=== PATIENT | male | born 1950 | race Caucasian/White ===

== ENCOUNTER 2016-06-08 05:44 | Emergency (ER) | payer MEDICAID ==
[~2016-06-08] VITALS: Ht 165.1 cm; Wt 63.0 kg
[2016-06-08 07:04] LABS: PROTHROMBIN TIME 10.1 sec
[2016-06-08 07:07] LABS: CHLORIDE 101 mEq/L (98-107); INDEX HEMOLYSI 1 (1-3); INDEX ICTERIC 1 (1-4); INDEX LIPEMIC 1 (1-3)
[2016-06-08 07:16] LABS: ALANINE AMINOTRANSFERASE 28 IU/L (13-61); ALBUMIN 2.5 g/dL (3.4-5.0); ANION GAP 17; CALCIUM 8.1 mg/dL (8.5-10.1); CARBON DIOXIDE 23 mEq/L (21-32); TROPONIN I < 0.02 ng/mL (0.00-0.04); UREA NITROGEN BLOOD 58 mg/dL (7-21); eGFR 20 mL/min (>60)
[2016-06-08 07:39] LABS: HEMATOCRIT. 28.5 % (42.0-52.0); HEMOGLOBIN. 10.2 g/dL (14.0-18.0); LYMPHOCYTES % 21.4 % (20.0-50.0); MEAN CORPUSCULAR HGB CONC 35.7 g/dL (31.0-37.0); MEAN CORPUSCULAR VOLUME 83.9 fL (80.0-94.0); MEAN PLATELET VOLUME 9.2 fl (7.4-10.4); MONOCYTES % 10.9 % (2.0-8.0); NEUTROPHILS % 62.7 % (40.0-76.0); PLATELET 248 x1000/uL (130-400); WHITE BLOOD COUNT 5.2 x1000/uL (4.5-11.0)
[2016-06-08 08:32] LABS: CLARITY URINE CLEAR (CLEAR); COLOR URINE YELLOW (YELLOW); GLUCOSE URINE 1+ (NEGATIVE); KETONES URINE NEGATIVE (NEGATIVE); LEUKOCYTE ESTERASE URINE NEGATIVE (NEGATIVE); NITRITE URINE NEGATIVE (NEGATIVE); OCCULT BLOOD URINE NEGATIVE (NEGATIVE); PH URINE 7.5 (4.5-8.0); PROTEIN URINE 2+ (NEGATIVE); SPECIFIC GRAVITY URINE 1.015 (1.005-1.030); UROBILINOGEN URINE 0.2 E.U./dL (0.2-1.0)
[2016-06-08 08:52] LABS: BACTERIA URINE TRACE; SQUAMOUS EPITHELIAL CELL URINE RARE /lpf (RARE/1+); WBC URINE 0-2 /hpf (0-2)
[2016-06-08 09:30] VITALS: BP 149/84
== END 2016-06-08 10:31 | disposition home or self-care (01) ==
LOC: ER 05:49
DX: T82.41XA Breakdown (mechanical) of vascular dialysis catheter, initial encounter (principal); I12.0 Hypertensive chronic kidney disease with stage 5 chronic kidney disease or end stage renal disease; N18.6 End stage renal disease; Z99.2 Dependence on renal dialysis; E11.65 Type 2 diabetes mellitus with hyperglycemia
CPT/HCPCS: 36415; 36561; 36581; 71010; 75827; 77001; 80053; 81001; 84484; 85025; 85610; 93005; 99285; C1725; C1750; C1769; J7050; Z7610; 36580

== ENCOUNTER 2017-02-24 05:38 | Day surgery (SDC) | payer MEDICARE, MEDICAID ==
[~2017-02-24] VITALS: Ht 165.1 cm; Wt 61.2 kg
[2017-02-24 06:42] LABS: BASOPHILS % 0.7 % (0.0-2.0); EOSINOPHILS % 3.9 % (0.0-5.0); HEMATOCRIT. 35.4 % (42.0-52.0); HEMOGLOBIN. 12.1 g/dL (14.0-18.0); LYMPHOCYTES % 16.6 % (20.0-50.0); MEAN CORPUSCULAR HEMOGLOBIN 30.3 pg (28.0-32.0); MEAN CORPUSCULAR VOLUME 88.7 fL (80.0-94.0); MEAN PLATELET VOLUME 8.7 fl (7.4-10.4); MONOCYTES % 11.3 % (2.0-8.0); NEUTROPHILS % 67.5 % (40.0-76.0); PLATELET 274 x1000/uL (130-400); RED BLOOD CELL COUNT 3.99 mill/uL (4.7-6.1); RED CELL DISTRIBUTION WIDTH 13.5 % (11.6-14.6)
[2017-02-24 06:50] LABS: PARTIAL THROMBOPLASTIN TIME 27.2 sec (23.4-31.0); PROTHROMBIN TIME 10.7 sec (9.4-11.6)
[2017-02-24] MEDS ORDERED: LIDOCAINE HCL 1% 20ML VIAL (Pyxis) INJ ONE (07:02)
[2017-02-24] MEDS ORDERED: LOSA50TA20 PO (07:03)
[2017-02-24] MEDS ORDERED: NIFE60TA77 PO (07:03)
[2017-02-24] MEDS ORDERED: METF500T4 PO (07:03)
[2017-02-24] MEDS ORDERED: HYDR-4134 PO (07:03)
[2017-02-24] MEDS ORDERED: NEPVIT PO (07:03)
[2017-02-24] MEDS ORDERED: THROMBIN (BOVINE) 5000 UNITS/VIAL TOP ONE (07:04)
[2017-02-24] MEDS ORDERED: PAPAVERINE HCL 30 MG/ML 2ML IV ONE (07:04)
[2017-02-24] MEDS ORDERED: GELATIN SPONGE,ABSORBABLE SZ 100 ONE (07:04)
[2017-02-24] MEDS ORDERED: BACITRACIN ZINC 15GM TUBE TOP ONE (07:04)
[2017-02-24] MEDS ORDERED: NORMAL SALINE 0.9% 10 ML SYR ONE (07:05)
[2017-02-24] MEDS ORDERED: BUPIVACAINE HCL/PF 0.5% (5MG/ML) 10ML ONE (07:05)
[2017-02-24] MEDS ORDERED: BACITRACIN 50,000 UNITS/VIAL ONE (07:05)
[2017-02-24] MEDS ORDERED: SODIUM CHLORIDE 0.9% 1,000 ML ONE (07:06)
[2017-02-24] MEDS ORDERED: HEPARIN SODIUM 1,000 UNIT/1ML VIAL IV ONE (07:14)
[2017-02-24] MEDS ORDERED: SODIUM CHLORIDE 0.9% 500 ML IV ONE (07:15)
[2017-02-24] MEDS ORDERED: NEOSTIGMINE METHYLSULFATE 1MG/ML 10 ML VIAL ONE (08:03)
[2017-02-24] MEDS ORDERED: CEFAZOLIN SODIUM 1000MG/VIAL ONE (08:03)
[2017-02-24] MEDS ORDERED: LIDOCAINE HCL/PF 1% 10 MG/ML 5ML VIAL ONE (08:04)
[2017-02-24] MEDS ORDERED: DEXAMETHASONE 4MG/ML 1ML VIAL ONE ×2 (08:05→08:07)
[2017-02-24] MEDS ORDERED: EPHEDRINE SULFATE 50MG/ML VIAL ONE (08:16)
[2017-02-24] MEDS ORDERED: HEPARIN 1000 UNITS/ML 10ML ONE (08:20)
[2017-02-24] MEDS ORDERED: FENTANYL CITRATE/PF 50MCG/ML 2ML VIAL IV PRN (08:30)
[2017-02-24] MEDS ORDERED: ONDANSETRON HCL 4MG/2ML VIAL IV PRN (08:30)
[2017-03-18] MEDS ORDERED: OMEP20CA10 PO (00:43)
[2017-03-18] MEDS ORDERED: CALC667T5 PO (00:43)
== END 2017-02-24 10:45 | disposition home or self-care (01) ==
LOC: OR 05:38
PROVIDERS: ATTEND Surgery Vascular Surgery
DX: I12.0 Hypertensive chronic kidney disease with stage 5 chronic kidney disease or end stage renal disease (principal); E11.22 Type 2 diabetes mellitus with diabetic chronic kidney disease; N18.6 End stage renal disease; Z86.2 Personal history of diseases of the blood and blood-forming organs and certain disorders involving the immune mechanism; K21.9 Gastro-esophageal reflux disease without esophagitis
CPT/HCPCS: 36415; 36821; 80048; 82962; 85025; 85610; 85730; 93005; A4216; J0171; J0690; J1100; J1644; J2710; J3490; J7040; J2440; J7030

== ENCOUNTER 2017-04-29 18:26 | Inpatient (IN) | payer MEDICARE, MEDICAID ==
[~2017-04-29] VITALS: Ht 165.1 cm; Wt 54.7 kg
[~2017-04-29 18:26] MED LIST: CALC667T5 PO; HYDR-4134 PO; LOSA50TA20 PO; METF500T4 PO; NEPVIT PO; NIFE60TA77 PO; OMEP20CA10 PO
[2017-04-29] MEDS ORDERED: CLONIDINE 0.2MG TABLET PO ONE (19:15)
[2017-04-29 19:36] LABS: BASOPHILS % 0.4 % (0.0-2.0); EOSINOPHILS % 2.5 % (0.0-5.0); HEMATOCRIT. 34.2 % (42.0-52.0); HEMOGLOBIN. 12.1 g/dL (14.0-18.0); LYMPHOCYTES % 12.9 % (20.0-50.0); MEAN CORPUSCULAR VOLUME 90.4 fL (80.0-94.0); MEAN PLATELET VOLUME 8.6 fl (7.4-10.4); MONOCYTES % 10.8 % (2.0-8.0); NEUTROPHILS % 73.4 % (40.0-76.0); PLATELET 208 x1000/uL (130-400); RED BLOOD CELL COUNT 3.78 mill/uL (4.7-6.1)
[2017-04-29 19:38] LABS: PROTHROMBIN TIME 10.2 sec (9.4-11.6)
[2017-04-29 19:43] LABS: CHLORIDE 98 mEq/L (98-107)
[2017-04-29] MEDS ORDERED: CLONIDINE 0.1MG TABLET PO ONE (23:15)
[2017-04-30] VITALS (9 sets, daily range): BP systolic 119–183; BP diastolic 55–76
[2017-04-30] MEDS ORDERED: DEXTROSE 50% WATER 50ML SYRINGE IV PRN (03:00)
[2017-04-30] MEDS ORDERED: IPRATROPIUM/ALBUTEROL 0.5-3(2.5)MG/3ML NEB INH PRN (03:00)
[2017-04-30] MEDS ORDERED: ONDANSETRON HCL 4MG/2ML VIAL IV PRN (03:00)
[2017-04-30] MEDS ORDERED: CLONIDINE 0.1MG TABLET PO PRN (03:00)
[2017-04-30] MEDS ORDERED: DIPHENHYDRAMINE 50MG/ML VIAL IV PRN (03:00)
[2017-04-30] MEDS ORDERED: GUAIFENESIN 200MG/10ML SUGAR FREE UDC PO PRN (03:00)
[2017-04-30] MEDS ORDERED: ACETAMINOPHEN 325MG TABLET PO PRN (03:00)
[2017-04-30] MEDS: HYDRALAZINE HCL 50MG TABLET PO SCH ×3 (06:24→21:31)
[2017-04-30] MEDS: SODIUM CHLORIDE 0.9% INJ 3ML FLUSH IVF SCH ×3 (06:24→22:42)
[2017-04-30] MEDS: OMEPRAZOLE 20MG CAPSULE EXTENDED RELEASE PO SCH (06:24)
[2017-04-30] MEDS: BLOOD SUGAR DIAGNOSTIC STRIP TEST SCH ×4 (07:34→21:21)
[2017-04-30] MEDS: INSULIN LISPRO 100 UNITS/ML SUBCUT SCH ×4 (07:50→21:30)
[2017-04-30] MEDS: CALCIUM ACETATE 667MG CAPSULE PO SCH ×3 (08:50→18:06)
[2017-04-30] MEDS: FOLIC ACID/VITAMIN B COMP W-C TABLET PO SCH (08:50)
[2017-04-30] MEDS: LOSARTAN POTASSIUM 50 MG TABLET PO SCH ×2 (08:50→21:23)
[2017-04-30] MEDS ORDERED: METFORMIN HCL 500MG TABLET PO SCH (09:00)
[2017-04-30 10:05] LABS: BASOPHILS % 0.7 % (0.0-2.0); EOSINOPHILS % 2.2 % (0.0-5.0); HEMATOCRIT. 31.8 % (42.0-52.0); HEMOGLOBIN. 11.1 g/dL (14.0-18.0); LYMPHOCYTES % 16.2 % (20.0-50.0); MEAN CORPUSCULAR HEMOGLOBIN 31.8 pg (28.0-32.0); MEAN CORPUSCULAR VOLUME 91.4 fL (80.0-94.0); NEUTROPHILS % 69.9 % (40.0-76.0); PLATELET 204 x1000/uL (130-400); RED BLOOD CELL COUNT 3.48 mill/uL (4.7-6.1); RED CELL DISTRIBUTION WIDTH 12.9 % (11.6-14.6)
[2017-04-30] MEDS ORDERED: ZOLPIDEM TARTRATE 5MG TABLET PO PRN (21:00)
[2017-05-01 02:00] VITALS: BP 142/76
[2017-05-01 04:00] VITALS: BP 163/62
[2017-05-01 05:52] LABS: BASOPHILS % 0.5 % (0.0-2.0); EOSINOPHILS % 3.9 % (0.0-5.0); HEMATOCRIT. 29.7 % (42.0-52.0); HEMOGLOBIN. 10.3 g/dL (14.0-18.0); LYMPHOCYTES % 17.3 % (20.0-50.0); MEAN CORPUSCULAR VOLUME 91.9 fL (80.0-94.0); MEAN PLATELET VOLUME 9.2 fl (7.4-10.4); MONOCYTES % 12.7 % (2.0-8.0); NEUTROPHILS % 65.6 % (40.0-76.0); PLATELET 184 x1000/uL (130-400); RED BLOOD CELL COUNT 3.23 mill/uL (4.7-6.1); RED CELL DISTRIBUTION WIDTH 12.8 % (11.6-14.6)
[2017-05-01 06:00] VITALS: BP 155/86
[2017-05-01] MEDS: HYDRALAZINE HCL 50MG TABLET PO SCH (06:22)
[2017-05-01] MEDS: SODIUM CHLORIDE 0.9% INJ 3ML FLUSH IVF SCH (06:25)
[2017-05-01 08:18] VITALS: BP 152/61
[2017-05-01] MEDS: BLOOD SUGAR DIAGNOSTIC STRIP TEST SCH ×2 (08:18→12:20)
[2017-05-01] MEDS: INSULIN LISPRO 100 UNITS/ML SUBCUT SCH ×2 (08:25→13:21)
[2017-05-01] MEDS: OMEPRAZOLE 20MG CAPSULE EXTENDED RELEASE PO SCH (08:25)
[2017-05-01] MEDS: CALCIUM ACETATE 667MG CAPSULE PO SCH ×2 (08:25→13:24)
[2017-05-01] MEDS: FOLIC ACID/VITAMIN B COMP W-C TABLET PO SCH (11:53)
[2017-05-01] MEDS: LOSARTAN POTASSIUM 50 MG TABLET PO SCH (11:53)
[2017-05-01 11:56] VITALS: BP 151/58
[2017-05-01 15:38] VITALS: BP 151/58
== END 2017-05-01 16:30 | disposition home or self-care (01) | DRG 70 ==
LOC: ER 18:30 → 6WST 22:56 → EDBEDREQTM 23:01 → EDBEDREQ 23:01 → 6WST 04-30 02:00
PROVIDERS: ADMIT Internal Medicine; ATTEND Internal Medicine
PROC: 0JPT3XZ Removal of Tunneled Vascular Access Device from Trunk Subcutaneous Tissue and Fascia, Percutaneous Approach (ICD-10-PCS; principal; 2017-04-30)
PROC: 05PYX3Z Removal of Infusion Device from Upper Vein, External Approach (ICD-10-PCS; 2017-04-30)
PROC: 5A1D70Z Performance of Urinary Filtration, Intermittent, Less than 6 Hours Per Day (ICD-10-PCS; 2017-05-01)
DX: G93.41 Metabolic encephalopathy (principal); N18.6 End stage renal disease; E11.22 Type 2 diabetes mellitus with diabetic chronic kidney disease; E87.8 Other disorders of electrolyte and fluid balance, not elsewhere classified; I12.0 Hypertensive chronic kidney disease with stage 5 chronic kidney disease or end stage renal disease; E44.1 Mild protein-calorie malnutrition; I13.11 Hypertensive heart and chronic kidney disease without heart failure, with stage 5 chronic kidney disease, or end stage renal disease; Z99.2 Dependence on renal dialysis; K21.9 Gastro-esophageal reflux disease without esophagitis; G90.8 Other disorders of autonomic nervous system; D64.9 Anemia, unspecified; I45.10 Unspecified right bundle-branch block; Z91.14 Patient's other noncompliance with medication regimen; Z91.11 Patient's noncompliance with dietary regimen; Z79.899 Other long term (current) drug therapy; Z68.20 Body mass index [BMI] 20.0-20.9, adult
CPT/HCPCS: 36415; 36589; 71045; 80048; 80053; 82962; 83036; 83880; 84484; 85025; 85610; 87040; 87070; 93005; 99285; J1815

== ENCOUNTER 2019-10-25 13:30 | Inpatient (IN) | payer MEDICAID, MEDICARE ==
[~2019-10-25] VITALS: Ht 167.6 cm; Wt 68.2 kg
[~2019-10-25 13:30] MED LIST changes: -CALC667T5 PO; +CALC667T6 PO; -LOSA50TA20 PO; +LOSA50TA41 PO; +METF-414 PO; -METF500T4 PO; -OMEP20CA10 PO; +OMEP20CA14 PO
[2019-10-25] MEDS ORDERED: DIPHENHYDRAMINE (13:55)
[2019-10-25] MEDS ORDERED: CLONIDINE (13:55)
[2019-10-25] MEDS ORDERED: ACETAMINOPHEN (13:55)
[2019-10-25] MEDS ORDERED: NITROSTAT (13:55)
[2019-10-25] MEDS ORDERED: SODIUM CHLORIDE 0.9% 1,000 ML IV ONE (14:21)
[2019-10-25] MEDS ORDERED: PIPERACILLIN/TAZ 3.375G PREMIX 50 ML IV ONE (14:30)
[2019-10-25] MEDS ORDERED: VANCOMYCIN 1 G PREMIX 200 ML IV ONE (14:30)
[2019-10-25 14:49] LABS: BASOPHILS % 1.3 % (0.0-2.0); CHLORIDE 93 mEq/L (98-107); EOSINOPHILS % 8.1 % (0.0-5.0); HEMOGLOBIN. 7.4 g/dL (14.0-18.0); LYMPHOCYTES % 18.6 % (20.0-50.0); MEAN CORPUSCULAR HEMOGLOBIN 29.6 pg (28.0-32.0); MEAN CORPUSCULAR VOLUME 83.6 fL (80.0-94.0); MEAN PLATELET VOLUME 8.6 fl (7.4-10.4); MONOCYTES % 8.2 % (2.0-8.0); NEUTROPHILS % 63.8 % (40.0-76.0); PLATELET 144 x1000/uL (130-400)
[2019-10-25 14:52] LABS: PROTHROMBIN TIME 10.8 sec (9.6-11.0)
[2019-10-25 15:33] LABS: HEMATOCRIT. 20.9 % (42.0-52.0)
[2019-10-25 20:00] VITALS: BP 164/72
[2019-10-25] MEDS ORDERED: POTASSIUM CHLORIDE 20MEQ TABLET SR PO ONE (20:45)
[2019-10-25] MEDS ORDERED: POTASSIUM CHLORIDE 10MEQ TABLET SR PO ONE (20:45)
[2019-10-25 21:05] VITALS: BP 164/72
[2019-10-25 21:06] VITALS: BP 164/72
[2019-10-25] MEDS ORDERED: DIPHENHYDRAMINE 50MG CAPSULE PO PRN (23:30)
[2019-10-25] MEDS ORDERED: ONDANSETRON HCL 4MG/2ML INJ IV PRN (23:30)
[2019-10-26] VITALS (7 sets, daily range): BP systolic 123–172; BP diastolic 49–78
[2019-10-26] MEDS: ACETAMINOPHEN 325MG TABLET PO PRN (00:12)
[2019-10-26] MEDS ORDERED: DEXTROSE 50% WATER 50ML SYRINGE IV PRN (00:15)
[2019-10-26] MEDS: CLONIDINE 0.1MG TABLET PO PRN (04:23)
[2019-10-26] MEDS: OMEPRAZOLE 20MG CAPSULE EXTENDED RELEASE PO SCH (06:39)
[2019-10-26] MEDS: BLOOD SUGAR DIAGNOSTIC STRIP TEST SCH ×4 (06:40→20:30)
[2019-10-26 07:15] LABS: BASOPHILS % 1.7 % (0.0-2.0); EOSINOPHILS % 6.7 % (0.0-5.0); HEMOGLOBIN. 7.4 g/dL (14.0-18.0); LYMPHOCYTES % 17.2 % (20.0-50.0); MEAN CORPUSCULAR HEMOGLOBIN 30.1 pg (28.0-32.0); MEAN CORPUSCULAR VOLUME 82.9 fL (80.0-94.0); MEAN PLATELET VOLUME 9.1 fl (7.4-10.4); MONOCYTES % 8.3 % (2.0-8.0); NEUTROPHILS % 66.1 % (40.0-76.0); PLATELET 134 x1000/uL (130-400); RED BLOOD CELL COUNT 2.47 mill/uL (4.7-6.1); RED CELL DISTRIBUTION WIDTH 13.1 % (11.6-14.6)
[2019-10-26 07:45] LABS: PHOSPHORUS 3.2 mg/dL (2.5-4.9)
[2019-10-26] MEDS: INSULIN LISPRO 100 UNITS/ML SUBCUT SCH ×4 (07:50→20:30)
[2019-10-26] MEDS: FOLIC ACID/VITAMIN B COMP W-C TABLET PO SCH (08:36)
[2019-10-26] MEDS: NIFEDIPINE XL 60MG TAB PO SCH ×2 (08:37→21:13)
[2019-10-26] MEDS: LOSARTAN POTASSIUM 50 MG TABLET PO SCH ×2 (08:37→21:13)
[2019-10-26] MEDS: CALCIUM ACETATE 667MG CAPSULE PO SCH ×3 (08:37→17:19)
[2019-10-26 08:41] LABS: HEMATOCRIT. 20.5 % (42.0-52.0)
[2019-10-26] MEDS ORDERED: HYDRALAZINE HCL 50MG TABLET PO SCH (09:00)
[2019-10-26] MEDS ORDERED: LEVOFLOXACIN 500MG PREMIX 100 ML IV SCH ×2 (09:15→12:00)
[2019-10-26 09:32] LABS: TOTAL IRON BINDING CAPACITY 200 ug/dL (250-450)
[2019-10-26] MEDS: HYDRALAZINE HCL 100MG TABLET PO SCH ×2 (13:07→21:13)
[2019-10-26] MEDS ORDERED: EPOETIN ALFA 10000UNITS/ML VIAL SUBCUT SCH (21:00)
[2019-10-26] MEDS: DORZOLAM/TIMOLOL 2.23/0.68% OPHTH DROPS 10ML LEFTEYE SCH (21:14)
[2019-10-26] MEDS ORDERED: DORZ10DR12 RIGHTEYE (21:38)
[2019-10-27] VITALS (10 sets, daily range): BP systolic 111–173; BP diastolic 42–70
[2019-10-27] MEDS: HYDRALAZINE HCL 100MG TABLET PO SCH ×3 (05:15→21:30)
[2019-10-27 05:50] LABS: EOSINOPHILS % 7.3 % (0.0-5.0); LYMPHOCYTES % 26.3 % (20.0-50.0); MEAN CORPUSCULAR HEMOGLOBIN 30.4 pg (28.0-32.0); MEAN CORPUSCULAR VOLUME 84.4 fL (80.0-94.0); MEAN PLATELET VOLUME 9.2 fl (7.4-10.4); MONOCYTES % 8.4 % (2.0-8.0); PLATELET 133 x1000/uL (130-400); RED BLOOD CELL COUNT 2.25 mill/uL (4.7-6.1); RED CELL DISTRIBUTION WIDTH 12.8 % (11.6-14.6)
[2019-10-27 06:18] LABS: HEMOGLOBIN. 6.8 g/dL (14.0-18.0)
[2019-10-27] MEDS: BLOOD SUGAR DIAGNOSTIC STRIP TEST SCH ×4 (06:20→21:30)
[2019-10-27] MEDS: OMEPRAZOLE 20MG CAPSULE EXTENDED RELEASE PO SCH (06:20)
[2019-10-27] MEDS: INSULIN LISPRO 100 UNITS/ML SUBCUT SCH ×4 (07:25→21:00)
[2019-10-27] MEDS: CALCIUM ACETATE 667MG CAPSULE PO SCH ×3 (08:58→17:40)
[2019-10-27] MEDS: FOLIC ACID/VITAMIN B COMP W-C TABLET PO SCH (08:58)
[2019-10-27] MEDS: DORZOLAM/TIMOLOL 2.23/0.68% OPHTH DROPS 10ML LEFTEYE SCH ×2 (08:58→21:30)
[2019-10-27] MEDS: LOSARTAN POTASSIUM 50 MG TABLET PO SCH ×2 (08:59→21:30)
[2019-10-27] MEDS: NIFEDIPINE XL 60MG TAB PO SCH ×2 (08:59→21:30)
[2019-10-27] MEDS: ACETAMINOPHEN 325MG TABLET PO PRN (17:44)
[2019-10-27] MEDS: CLONIDINE 0.1MG TABLET PO PRN (18:12)
[2019-10-28 00:13] VITALS: BP 149/53
[2019-10-28 04:00] VITALS: BP 153/54
[2019-10-28] MEDS: BLOOD SUGAR DIAGNOSTIC STRIP TEST SCH ×2 (06:30→12:46)
[2019-10-28] MEDS: HYDRALAZINE HCL 100MG TABLET PO SCH ×2 (06:37→13:42)
[2019-10-28] MEDS: OMEPRAZOLE 20MG CAPSULE EXTENDED RELEASE PO SCH (06:37)
[2019-10-28 06:48] LABS: BASOPHILS % 1.3 % (0.0-2.0); EOSINOPHILS % 5.7 % (0.0-5.0); HEMATOCRIT. 24.1 % (42.0-52.0); HEMOGLOBIN. 8.6 g/dL (14.0-18.0); LYMPHOCYTES % 22.7 % (20.0-50.0); MEAN CORPUSCULAR HEMOGLOBIN 30.6 pg (28.0-32.0); MEAN CORPUSCULAR VOLUME 86.2 fL (80.0-94.0); MEAN PLATELET VOLUME 9.4 fl (7.4-10.4); MONOCYTES % 10.9 % (2.0-8.0); NEUTROPHILS % 59.4 % (40.0-76.0); PLATELET 128 x1000/uL (130-400); RED CELL DISTRIBUTION WIDTH 13.3 % (11.6-14.6)
[2019-10-28] MEDS: INSULIN LISPRO 100 UNITS/ML SUBCUT SCH ×2 (07:41→12:46)
[2019-10-28] MEDS: NIFEDIPINE XL 60MG TAB PO SCH (08:01)
[2019-10-28] MEDS: DORZOLAM/TIMOLOL 2.23/0.68% OPHTH DROPS 10ML LEFTEYE SCH (08:01)
[2019-10-28] MEDS: LOSARTAN POTASSIUM 50 MG TABLET PO SCH (08:01)
[2019-10-28] MEDS: CALCIUM ACETATE 667MG CAPSULE PO SCH ×2 (08:01→12:34)
[2019-10-28] MEDS: FOLIC ACID/VITAMIN B COMP W-C TABLET PO SCH (08:01)
[2019-10-28 08:15] VITALS: BP 153/58
[2019-10-28] MEDS ORDERED: LEVOFLOXACIN 250MG PREMIX 50 ML IV SCH (11:00)
[2019-10-28 11:02] VITALS: BP 139/56
[2019-10-28 12:16] VITALS: BP 139/56
== END 2019-10-28 14:54 | disposition home or self-care (01) | DRG 720 ==
LOC: ER 15:09 → EDBEDREQTM 15:17 → EDBEDREQ 15:17 → EDBEDREQSVC 15:17 → 6WST 16:11 → EDBEDREQ 16:36 → EDBEDREQTM 16:36 → ENRESERV 19:59
PROVIDERS: ADMIT Internal Medicine; ATTEND Internal Medicine
PROC: 5A1D70Z Performance of Urinary Filtration, Intermittent, Less than 6 Hours Per Day (ICD-10-PCS; principal; 2019-10-27)
PROC: 30233N1 Transfusion of Nonautologous Red Blood Cells into Peripheral Vein, Percutaneous Approach (ICD-10-PCS; 2019-10-27)
DX: A41.9 Sepsis, unspecified organism (principal); I95.3 Hypotension of hemodialysis; N18.6 End stage renal disease; R65.21 Severe sepsis with septic shock; D63.8 Anemia in other chronic diseases classified elsewhere; E11.22 Type 2 diabetes mellitus with diabetic chronic kidney disease; E44.0 Moderate protein-calorie malnutrition; E87.1 Hypo-osmolality and hyponatremia; E87.6 Hypokalemia; E87.8 Other disorders of electrolyte and fluid balance, not elsewhere classified; I12.0 Hypertensive chronic kidney disease with stage 5 chronic kidney disease or end stage renal disease; B19.20 Unspecified viral hepatitis C without hepatic coma; R79.89 Other specified abnormal findings of blood chemistry; E87.5 Hyperkalemia; Z99.81 Dependence on supplemental oxygen; Z99.2 Dependence on renal dialysis; Z79.899 Other long term (current) drug therapy; Z68.24 Body mass index [BMI] 24.0-24.9, adult
CPT/HCPCS: 36415; 71045; 80048; 80053; 80061; 82728; 82962; 83036; 83540; 83550; 83605; 84100; 84145; 84484; 85025; 86850; 86900; 86920; 93005; 99285; J0885; J1815; J1956; J2543; J3370; J7030; P9016